=== PATIENT | female | born 1970 | race Caucasian/White ===

== ENCOUNTER 2017-03-06 13:21 | Outpatient (CLI) | payer BC, OTHER | END 2017-03-06 13:22 | disposition home or self-care (01) | LOC: LAB.WCP 13:21 | PROVIDERS: ATTEND Physician Assistant Medical | DX: Z00.00 Encounter for general adult medical examination without abnormal findings (principal) | CPT/HCPCS: 87491; 87591 ==

== ENCOUNTER 2017-12-03 08:00 | Outpatient (CLI) | payer OTHER | END 2017-12-03 08:01 | disposition home or self-care (01) | LOC: LAB.WCP 08:00 | PROVIDERS: ATTEND Family Medicine | DX: J02.0 Streptococcal pharyngitis (principal) | CPT/HCPCS: 87070 ==